=== PATIENT | male | born 1980 | race Caucasian/White ===

== ENCOUNTER 2018-05-07 19:44 | Emergency (ER) | payer OTHER ==
[~2018-05-07] VITALS: Ht 177.8 cm; Wt 99.8 kg
[2018-05-07] MEDS ORDERED: IBUP600 PO (20:53)
== END 2018-05-07 21:20 | disposition home or self-care (01) ==
LOC: ER 19:44
DX: S52.571A Other intraarticular fracture of lower end of right radius, initial encounter for closed fracture (principal); S52.611A Displaced fracture of right ulna styloid process, initial encounter for closed fracture; W01.0XXA Fall on same level from slipping, tripping and stumbling without subsequent striking against object, initial encounter
CPT/HCPCS: 29125; 73110; 99283-25; L3917